=== PATIENT | female | born 1955 | race African-American/Black ===

== ENCOUNTER 2019-01-09 09:19 | Inpatient (IN) ==
[2019-01-09 09:58] LABS: BILIRUBIN URINE NEGATIVE (NEGATIVE); BLOOD URINE 4+ (NEGATIVE); CLARITY CLEAR (CLEAR); COLOR YELLOW; GLUCOSE URINE NEGATIVE (NEGATIVE); KETONE URINE NEGATIVE (NEGATIVE); LEUKOCYTES URINE 1+ (NEGATIVE); NITRITE URINE NEGATIVE (NEGATIVE); PH URINE 6.5; PROTEIN URINE 1+(30 mg/dL) mg/dL (NEGATIVE); SP GRAVITY URINE 1.015; UROBILINOGEN URINE 4 mg/dL
[2019-01-09 10:01] LABS: URINE BACTERIA 1+ /HFP; URINE CAST NONE SEEN /LPF; URINE CRYSTAL NONE SEEN /HPF; URINE EPITHELIAL CELLS <10 /HPF (<10); URINE RBC <10 /HPF (<10); URINE SOURCE CLEAN CATCH; URINE WBC <10 /HPF (<10); URINE YEAST PRESENT /HPF
[2019-01-09 10:05] LABS: BASO# 0.03 X1000 (0.0-0.2); BASO% 0.2 % (0.0-0.8); EOS# 0.01 X1000 (0.0-0.7); EOS% 0.1 % (0.0-10.0); HEMATOCRIT 38.8 % (37.0-47.0); HEMOGLOBIN 12.9 g/dL (12.0-16.0); IMM GRAN# 0.02 X1000 (0.0-0.04); IMM GRAN% 0.1 % (0.0-0.5); LYMPH# 1.77 X1000 (1.2-3.4); LYMPH% 12.3 % (20.5-51.1); MCH 28.8 PG (27-31); MCHC 33.2 g/dL (33-37); MCV 86.6 FL (81-99); MONO# 1.63 X1000 (0.11-0.59); MONO% 11.3 % (1.7-9.3); MPV 9.7 FL (7.4-10.4); NEUT# 10.96 X1000 (1.4-6.5); PLT 364 X1000 (130-400); RBC 4.48 XMIL (4.2-5.4); WBC 14.42 X1000 (4.8-10.8)
--- NOTE | 2019-01-09 10:34 | Diag Imaging Result Doc PS360 ---
EXAM: ABDOMEN FLAT/UPRIGHT - 01/09/2019 HISTORY: nvd TECHNIQUE: Supine and upright abdomen COMPARISON: None. FINDINGS: The bowel gas pattern appears nonspecific and nonobstructive. There is no free air identified. IMPRESSION: Nonspecific, nonobstructive bowel gas pattern. Electronically signed by Cal Cosme 01/09/2019 10:32 AM
--- NOTE | 2019-01-09 10:37 | Diag Imaging Result Doc PS360 ---
EXAM: CHEST-2 VIEWS - 01/09/2019 HISTORY: cough TECHNIQUE: Chest two views COMPARISON: None. FINDINGS: Heart size appears upper normal. There is some peribronchial cuffing which may relate to bronchitis. There is mild infiltrate or atelectasis at the posterior base of the chest which is most conspicuous on the lateral view. The possibility of bronchopneumonia at this location cannot be excluded. There is no other consolidation, pleural effusion, or pneumothorax identified. There is thoracic spondylosis noted. IMPRESSION: Apparent bronchitis, with possible lower lobe bronchopneumonia. Electronically signed by Cal Cosme 01/09/2019 10:34 AM
[2019-01-09 10:55] LABS: AGAP 14; ALBUMIN 4.1 g/dL (3.5-5.0); ALKALINE PHOSPHATASE 82 U/L (32-104); BUN 10 mg/dL (8-22); CHLORIDE 96 mmol/L (98-107); COSMO 270; CREATININE 0.7 mg/dL (0.5-0.9); ESTIMATED GFR > 60; GLUCOSE 122 mg/dL (70-104); GOT 20 U/L (10-30); GPT 16 U/L (10-36); LIPASE 15 U/L (13-60); POTASSIUM 3.3 mmol/L (3.5-5.1); SODIUM 135 mmol/L (136-145); TCO2 25 mmol/L (25-35); TOTAL PROTEIN 8.1 g/dL (6.3-8.3)
--- NOTE | 2019-01-09 11:15 | PROVIDER DOCUMENTATION ---
This chart was entered by Trinity Ruano Scribe, acting as scribe for Boone Holloway MD. HPI-Abdominal Pain/GI Problem - General Chief Complaint: N/V/D Stated Complaint: VOMITING SINCE SATURDAY Time Seen by Provider: 01/09/19 09:26 Source: patient, family () Allergies/Adverse Reactions: Patient Allergies Allergy/AdvReac Type Severity Reaction Status Date / Time No Known Allergies Allergy Verified 08/20/17 18:11 Home Medications: Home Medication List Medication Instructions Recorded Confirmed Last Taken Type Ibuprofen [Motrin] 800 mg PO Q8H PRN PRN #30 tab 08/20/17 Unknown Rx Methocarbamol [Robaxin] 500 mg PO BID #15 tab 08/20/17 Unknown Rx - History of Present Illness-ABD Nature of Presenting Problems: 63 yobf presents to the ed with c/o 4 days of intermittent n/v/d, increased urination, hematuria, abdominal pain in umbilical and RUQ, fever and cough. pt sts poor mikey intake due to nausea and vomiting. pt sts sx have worsened since onset and denies bad food or sick contacts Abdominal Pain Onset Location: reports: RUQ Pain Radiation: reports: periumbilical Quality of Pain: reports: cramping Severity in ED: reports: moderate Onset/Duration: reports: 4 days ago Activities at Onset: reports: light activity Exposure to sick contacts?: No Modifying Factors: improves with: nothing. worse with: eating Associated Symptoms: reports: cough, diarrhea, EENT symptoms, fever/chills (100.4), genitourinary problems (increased urination and hematuria), nausea, vomiting. denies: back/neck pain, chest pain, headaches, shortness of breath Last BM: this morning Dark Stools Present?: reports: none noticed Rectal Bleeding: reports: none # of Diarrhea Episodes: 5 Rectal Pain: reports: none # of Vomiting Episodes: 10 Emesis Description: reports: other (anything taken PO) Bruising or Bleeding Gums?: No Similar Symptoms Previously?: No Recently seen or treated by another doctor?: No Review of Systems - Adult - REVIEW OF SYSTEMS - ADULT Constitutional: reports: see HPI, chills, fever Eyes: reports: no symptoms reported Ears, Nose, Mouth & Throat: reports: no symptoms reported Cardiovascular: reports: see HPI, edema (BLE). denies: chest pain, palpitations Respiratory: reports: see HPI, cough. denies: shortness of breath, wheezing Gastrointestinal: reports: see HPI, abdominal pain, diarrhea, nausea, vomiting. denies: hematemesis, rectal bleeding Genitourinary: reports: see HPI, frequency, hematuria. denies: dysuria, flank pain Musculoskeletal: denies: back pain, neck pain Integumentary: reports: no symptoms reported Neurological: denies: dizziness/vertigo, headache/migraines, loss of balance, numbness, paresthesia, seizure Psychiatric: reports: no symptoms reported Endocrine: reports: no symptoms reported Hematologic/Lymphatic: reports: no symptoms reported Allergic/Immunologic: reports: no symptoms reported All Other Systems: Reviewed and Negative Past History - Adult - PAST MEDICAL HISTORY-ADULT Review of Records: reports: Old Records Reviewed, Nursing Assessment Review, Medications Reviewed, Social history reviewed & non-contributory. Major Childhood Illnesses: reports: denies history Cardiovascular: reports: denies history Respiratory: reports: denies history Gastrointestinal: reports: denies history Obstetrical/Gynecological: reports: denies history Genitourinary: reports: denies history Musculoskeletal: reports: denies history Hand Dominance: Right Handed Neurological: reports: denies history Psychiatric: reports: denies history Endocrine/Immune: reports: denies history Other Conditions: reports: denies history - PRIOR SURGERIES/PROCEDURES Surgical/Procedure History: reports: hysterectomy, orthopedic (extremity) - IMMUNIZATION STATUS Childhood Immunizations: See Nurse Assessment Flu Vaccine: See Nurse Assessment - FAMILY HISTORY Family History: reviewed, not pertinent - SOCIAL HISTORY Smoking: denies Substance Use: denies Living Situation: family Physical Exam-General - PHYSICAL EXAM-ADULT Initial Vital Signs Reviewed: Yes - CONSTITUTIONAL General Appearance: appears well, alert, mild distress, obese - EYES Eyes: PERRL/EOMI, pink conjunctivae - HEAD, EARS, NOSE, MOUTH & THROAT HENMT: other (nasal congestion). negative: moist mucous membranes (dry) - NECK Neck: non-tender, full range of motion, normal inspection - RESPIRATORY Respiratory: chest non-tender, lungs clear, normal breath sounds - CARDIOVASCULAR Cardiovascular: normal peripheral pulses, regular rate, rhythm - GASTROINTESTINAL (ABDOMEN) Abdominal Exam: normal bowel sounds, soft, no organomegaly, no pulsatile mass, tenderness (ruq and umbilical). negative: guarding, rigid, rebound - GENITOURINARY Female Genitalia/Pelvic Exam: deferred Rectal Exam: deferred Hemoccult Exam: deferred - LYMPHATIC Lymphatic: no adenopathy - MUSCULOSKELETAL Back Exam: normal inspection, no CVA tenderness, no vertebral tenderness Extremity: normal range of motion, non-tender, no pedal edema, no calf tenderness, normal capillary refill, swelling (BLE edema), other (well healed scar on LLE near ankle) - SKIN Integumentary: normal color, normal turgor, warm/dry - NEUROLOGIC Neurologic: grossly normal, no motor/sensory deficits - PSYCHIATRIC Psych/Mental Status: normal mood/affect, normal thought content, normal thought process, oriented x 3 Progress - PLAN OF CARE/RESULTS Progress/Plan/Lab Results: Vital Signs - 8 hr 01/09/19 09:23 Temperature 98.8 F Pulse Rate 81 Respiratory Rate 18 Blood Pressure 145/73 O2 Sat by Pulse Oximetry 96 Laboratory Results - last 24 hr 01/09/19 09:44 Urine Source CLEAN CATCH Urine Color YELLOW Urine Clarity CLEAR Urine pH 6.5 Ur Specific [place] 1.015 Urine Protein 1+(30 mg/dL) A Urine Ketones NEGATIVE Urine Blood 4+ Urine Nitrite NEGATIVE Urine Bilirubin NEGATIVE Urine Urobilinogen 4 Urine Microscopic RBC <10 Urine WBC 1+ A Urine Microscopic WBC <10 Ur Epithelial Cells <10 Urine Crystals NONE SEEN Urine Bacteria 1+ Urine Casts NONE SEEN Urine Yeast PRESENT Urine Glucose NEGATIVE Orders Category Date Time Status CHEST-2 VIEWS [RAD] Stat Exams 01/09/19 10:04 Ordered AMYLASE [CHEM] Stat Lab 01/09/19 09:54 Received CBC WITH DIFF [HEME] Stat Lab 01/09/19 09:54 Results COMPREHENSIVE METABOLIC PANEL [CHEM] Stat Lab 01/09/19 09:56 Received LIPASE [CHEM] Stat Lab 01/09/19 09:[address] W/POSS RFLX CULT [URINALYSIS] Stat Lab 01/09/19 09:44 Completed URINE CULTURE [RM] Routine Lab 01/09/19 10:01 Ordered Result Diagrams: 01/09/19 09:54 01/09/19 09:54 - REASSESSMENT Reassessment #1 Time Reassessed: 10:47 (pt is resting in bed) Status: improving - XRAY 1 XRAY: Bilateral XRAY Study: Abdomen Impression: See EMR Report (EXAM: ABDOMEN FLAT/UPRIGHT - 01/09/2019 HISTORY: nvd TECHNIQUE: Supine and upright abdomen COMPARISON: None. FINDINGS: The bowel gas pattern appears nonspecific and nonobstructive. There is no free air identified. IMPRESSION: Nonspecific, nonobstructive bowel gas pattern. Electronically signed by Cal Cosme 01/09/2019 10:32 AM 01/09/19 1032 Interpreting Physician: Cal Cosme MD Dictated Date/Time: 01/09/19 1030 cc: Boone Holloway MD; Eduardo Palacios DO) 2 XRAY: Bilateral XRAY Study: Chest Impression: See EMR Report (EXAM: CHEST-2 VIEWS - 01/09/2019 HISTORY: cough TECHNIQUE: Chest two views COMPARISON: None. FINDINGS: Heart size appears upper normal. There is some peribronchial cuffing which may relate to bronchitis. There is mild infiltrate or atelectasis at the posterior base of the chest which is most conspicuous on the lateral view. The possibility of bronchopneumonia at this location cannot be excluded. There is no other consolidation, pleural effusion, or pneumothorax identified. There is thoracic spondylosis noted. IMPRESSION: Apparent bronchitis, with possible lower lobe bronchopneumonia. Electronically signed by Cal Cosme 01/09/2019 10:34 AM 01/09/19 1034 Interpreting Physician: Cal Cosme MD Dictated Date/Time: 01/09/19 1032 cc: Boone Holloway MD; Eduardo Palacios DO) - CONSULTS/PCP/HOSPITALIST Notification #1 *Consult/PCP/Hospitalist*: hospitalist dr johnson Time Discussed: 11:08 Consult Disposition: Admit Departure - Departure Date of Disposition Decision: 01/09/19 Time of Disposition Decision: 11:13 DIAGNOSIS: Pneumonia, Hematuria Disposition: ADMITTED INPATIENT 09 Certified Medical Emergency: Emergent Condition: Stable Referrals and Follow-Ups: Eduardo Palacios DO [Primary Care Provider] - - Critical Care Note This patient required my direct & personal management of CC.: No Attestation - Physician/ JESSE Attestation Patient care was provided by Advanced Practice Provider:: No The physician spent face to face time with patient:: Yes Advanced Practice Provider documentation review:: Supervising physician onsite and consulted in the evaluation and care of this patient. The physician did have a face to face encounter with the patient. This chart was documented by the indicated scribe, (Trinity Ruano Scribe) and accurately reflects the services I performed and decisions made by me, Boone Holloway MD, as attested by the provider's signature.
[2019-01-09] MEDS: FLAGYL 500 MG/NS 500 MG/100 ML IVPB IV SCH ×2 (16:50→22:16)
[2019-01-09] MEDS: LEVAQUIN 750 MG/D5W 750 MG/150 ML IVPB IV SCH (18:01)
[2019-01-10] MEDS: FLAGYL 500 MG/NS 500 MG/100 ML IVPB IV SCH ×4 (03:27→22:08)
[2019-01-10] MEDS: TYLENOL PO PRN (05:38)
[2019-01-10 07:04] LABS: HEMATOCRIT 37.4 % (37.0-47.0); HEMOGLOBIN 12.2 g/dL (12.0-16.0); MCH 28.8 PG (27-31); MCHC 32.6 g/dL (33-37); MCV 88.2 FL (81-99); MPV 9.7 FL (7.4-10.4); RBC 4.24 XMIL (4.2-5.4); RDW 13.1 % (11.5-14.5); WBC 9.67 X1000 (4.8-10.8)
[2019-01-10 07:26] LABS: AGAP 12; ALBUMIN 3.8 g/dL (3.5-5.0); ALKALINE PHOSPHATASE 71 U/L (32-104); BUN 11 mg/dL (8-22); CALCIUM 8.7 mg/dL (8.8-10.2); CHLORIDE 95 mmol/L (98-107); COSMO 275; CREATININE 0.6 mg/dL (0.5-0.9); ESTIMATED GFR > 60; GLUCOSE 96 mg/dL (70-104); GOT 19 U/L (10-30); GPT 14 U/L (10-36); SODIUM 138 mmol/L (136-145); TCO2 31 mmol/L (25-35); TOTAL PROTEIN 7.2 g/dL (6.3-8.3)
[2019-01-10] MEDS ORDERED: KLOR-CON PO ONE (10:19)
[2019-01-10] MEDS ORDERED: NS 1,000 ML IV SCH (10:30)
[2019-01-10] MEDS ORDERED: NS 500 ML IV SCH (11:00)
--- NOTE | 2019-01-10 11:42 | HISTORY AND PHYSICAL ---
CHIEF COMPLAINT: Nausea, vomiting. HISTORY OF PRESENT ILLNESS: Patient is a 63-year-old female, who presented to the ER with a 4 to 5 day history of nausea. Vomiting has been going on the past 4 days, becoming more severe. She is having diarrhea. Denies any hematochezia, melena or hematemesis. She has had increased urination, denies hematuria. Has had umbilical and right upper quadrant pain. Notes that she has had a decreased oral intake secondary to the nausea and frequent emesis. ALLERGIES: No known drug allergies. MEDICATIONS: She is on no current active chronic medications. REVIEW OF SYSTEMS: Positive fevers to 100.4. She has had some cramping right upper quadrant pain, nausea and vomiting. She has had diarrhea. She has had increased urination, increased thirst. Denies any chest pain, palpitations. Denies shortness of breath. Denies any focalized numbness, tingling or weakness in her extremities. PAST MEDICAL HISTORY: No chronic active medical problems. SURGICAL HISTORY: She has had a hysterectomy and extremity surgery. FAMILY HISTORY: Noncontributory. SOCIAL HISTORY: Patient does not smoke or drink. PHYSICAL EXAM: VITAL SIGNS: Temperature 98 degrees, pulse 81, respiratory rate 18, BP 145/73. GENERAL: Patient is awake, alert. She is in no distress. HEENT: Normocephalic. NECK: Supple. CARDIOVASCULAR: Regular rate. CHEST: Clear and nonlabored. EXTREMITIES: Moves all extremities. NEUROLOGIC: No changes. ASSESSMENT: 1. Nausea, vomiting, diarrhea, likely viral gastroenteritis. 2. Leukocytosis. 3. Mild hypokalemia. 4. Hematuria. PLAN: We are going to admit patient to the hospital. IV fluids, Zofran, and other symptomatic medications as needed. We will continue to follow. cc: William Rich MD
[2019-01-10] MEDS: LEVAQUIN 750 MG/D5W 750 MG/150 ML IVPB IV SCH (15:10)
--- NOTE | 2019-01-10 20:55 | PROGRESS NOTE ---
DATE: 01/10/2019 SUBJECTIVE: The patient notes that she is feeling better. Her nausea is much improved. She is still having coughing. He has not really been coughing up anything today. Denies any fevers or chills. PHYSICAL EXAMINATION: Temp 98, pulse 61, respiratory 18, BP 112/44.General: Patient is awake, alert. She is very pleasant to talk with. She is in no current respiratory distress. HEENT: Normocephalic. Neck: Supple. Cardiovascular: Regular rate. No murmurs. Chest: Decreased but equal breath sounds. No crackles. No wheezing. Abdomen: Soft, nondistended. Extremities: Moves all extremities. ASSESSMENT: 1. Nausea, vomiting. 2. Gastroenteritis, likely viral. 3. Leukocytosis. 4. Hematuria. 5. Bronchitis. 6. Hypokalemia. PLAN: We will continue on Levaquin and Flagyl as this will treat any pneumonia as well as any abdominal pathology. She is improving. We will continue to advance her diet. Hopefully, she can discharge home tomorrow if her symptoms continue to improve. cc: William Rich MD
[2019-01-11] MEDS: FLAGYL 500 MG/NS 500 MG/100 ML IVPB IV SCH (04:06)
[2019-01-11 06:22] LABS: HEMATOCRIT 38.4 % (37.0-47.0); HEMOGLOBIN 12.3 g/dL (12.0-16.0); MCH 28.2 PG (27-31); MCV 88.1 FL (81-99); MPV 9.7 FL (7.4-10.4); RBC 4.36 XMIL (4.2-5.4); RDW 12.9 % (11.5-14.5); WBC 8.66 X1000 (4.8-10.8)
[2019-01-11 07:06] LABS: AGAP 10; ALBUMIN 3.5 g/dL (3.5-5.0); ALKALINE PHOSPHATASE 74 U/L (32-104); BUN 14 mg/dL (8-22); CALCIUM 8.7 mg/dL (8.8-10.2); CHLORIDE 102 mmol/L (98-107); COSMO 278; CREATININE 0.6 mg/dL (0.5-0.9); ESTIMATED GFR > 60; GLUCOSE 102 mg/dL (70-104); GOT 22 U/L (10-30); GPT 15 U/L (10-36); MAGNESIUM 1.8 mg/dL (1.5-2.7); POTASSIUM 3.6 mmol/L (3.5-5.1); SODIUM 139 mmol/L (136-145); TCO2 27 mmol/L (25-35); TOTAL PROTEIN 7.4 g/dL (6.3-8.3)
[2019-01-11] MEDS: LEVAQUIN PO SCH (09:53)
[2019-01-11] MEDS: FLAGYL PO SCH ×2 (12:41→21:52)
[2019-01-11] MEDS: TYLENOL PO PRN (15:49)
[2019-01-11] MEDS: DUONEB (A & A) INH PRN (15:55)
--- NOTE | 2019-01-11 20:21 | PROGRESS NOTE ---
DATE: 01/11/2019 SUBJECTIVE: Patient notes she is still coughing with congestion. Still having some shortness of breath. States she is very concerned about going home today. Still feels increased work of breathing with any activity. PHYSICAL EXAMINATION: She is afebrile. Pulse is in the 60s. Blood pressure is stable.General: Patient is awake, alert. She is pleasant. She is coughing. She does appear to be in mild respiratory distress. HEENT: Normocephalic. Neck: Supple. Cardiovascular: Regular rate. No murmurs. Chest: Wheezing bilaterally. No current crackles. Mildly labored while she is lying in the bed. [id number] labored when she gets up and moves. Abdomen: Soft, nondistended, nontender. Extremities: Moves all extremities. Neurologic: No changes. ASSESSMENT: 1. Nausea vomiting. 2. Diarrhea, likely gastroenteritis appears resolved. 3. Pneumonia. 4. Wheezing. 5. Leukocytosis. 6. Hypokalemia resolved. PLAN: We will continue patient in the hospital today. We will add breathing treatments. We will not add steroids year yet, but certainly may require this if she does not turn around. Expect that she will be in the hospital 1 to 2 more days. cc: William Rich MD
[2019-01-12] MEDS: FLAGYL PO SCH ×3 (05:44→20:50)
[2019-01-12] MEDS: DUONEB (A & A) INH PRN (08:16)
[2019-01-12] MEDS: LEVAQUIN PO SCH (09:08)
[2019-01-12] MEDS: SOLU-MEDROL IV SCH ×2 (09:08→16:14)
--- NOTE | 2019-01-12 19:38 | PROGRESS NOTE ---
DATE: 01/12/2019 SUBJECTIVE: Patient states that she still does not feel completely back to normal. Still having coughing and mild congestion. Denies any fevers or chills. PHYSICAL EXAMINATION: Vital signs: Temp 98, pulse 61, respiratory 18, BP 127/66. General: Patient is pleasant to talk with. She is lying in the bed. She does have a mild cough with any movement. HEENT: Normocephalic. Neck: Supple. Cardiovascular: Regular rate. No murmurs. Chest: Clear although when she has forced exhalation, she does have some mild wheezing. Abdomen: Soft, nondistended. Extremities: Moves all extremities. ASSESSMENT: 1. Asthma exacerbation with wheezing. 2. Gastroenteritis, resolved. 3. Leukocytosis. 4. Hypokalemia. PLAN: We will continue patient in the hospital. Continue breathing treatments and we will add Solu-Medrol today and see if this helps and we will follow. Hopefully she can discharge home over the next day or two. cc: William Rich MD
[2019-01-13] MEDS: SOLU-MEDROL IV SCH ×3 (00:03→16:11)
[2019-01-13] MEDS: FLAGYL PO SCH ×2 (05:09→13:06)
[2019-01-13 06:38] LABS: HEMATOCRIT 38.8 % (37.0-47.0); HEMOGLOBIN 12.6 g/dL (12.0-16.0); MCH 28.3 PG (27-31); MCHC 32.5 g/dL (33-37); MPV 9.8 FL (7.4-10.4); RBC 4.46 XMIL (4.2-5.4); WBC 13.95 X1000 (4.8-10.8)
--- NOTE | 2019-01-13 06:44 | Diag Imaging Result Doc PS360 ---
CHEST-2 VIEWS - 01/13/2019 INDICATION: hypoxia COMPARISON: 01/09/2019 FINDINGS: Lung volumes are severely low with patchy nonspecific atelectasis or infiltrate in the lung bases. This is stable from prior. Heart size is top normal. No pneumothorax or pleural effusion. IMPRESSION: No change from prior. Electronically signed by Gurwinder Gonzalez 01/13/2019 6:41 AM
[2019-01-13 06:53] LABS: AGAP 10; ALBUMIN 3.6 g/dL (3.5-5.0); ALKALINE PHOSPHATASE 70 U/L (32-104); BUN 10 mg/dL (8-22); CALCIUM 9.1 mg/dL (8.8-10.2); CHLORIDE 106 mmol/L (98-107); COSMO 283; CREATININE 0.5 mg/dL (0.5-0.9); ESTIMATED GFR > 60; GLUCOSE 139 mg/dL (70-104); GOT 16 U/L (10-30); GPT 15 U/L (10-36); MAGNESIUM 1.8 mg/dL (1.5-2.7); POTASSIUM 4.1 mmol/L (3.5-5.1); SODIUM 141 mmol/L (136-145); TCO2 25 mmol/L (25-35); TOTAL PROTEIN 7.6 g/dL (6.3-8.3)
[2019-01-13] MEDS: LEVAQUIN PO SCH (08:37)
[2019-01-13 16:03] VITALS: BP 134/68
--- NOTE | 2019-01-14 08:32 | DISCHARGE SUMMARY ---
ADMISSION DATE: 01/09/2019 DISCHARGE DATE: 01/13/2019 DISCHARGE DIAGNOSES: 1. Asthma exacerbation, possibly early pneumonia. 2. Gastroenteritis. 3. Hypokalemia. CONSULTATIONS: None. PROCEDURES: None. HOSPITAL COURSE: This is a 63-year-old female presenting with nausea, vomiting. She was placed on IV fluids, Zofran. She had some mild hematuria. She was placed on Levaquin and Flagyl. Her chest x-ray showed some possible atelectasis versus lower lobe bronchopneumonia, bronchitis. Her abdominal films were nonspecific. She improved slowly. She had to be placed on steroids for breathing and breathing treatments as she had persistent wheezing. By the she improved. She was monitored for a little longer and on the she was breathing comfortably, 97-100% on room air. I did not appreciate any wheezing. She did have some leukocytosis, 13.9. Potassium was up to 4.1, but wheezing had resolved. She was tolerating p.o. without difficulty and felt stable for discharge. DISCHARGE MEDICATIONS: Hydrochlorothiazide 25 daily home medication, Levaquin 500 daily for 7 days, prednisone taper, and Ventolin 2 puffs inhaled t.i.d. for 7 days and as needed. FOLLOWUP: She follow up with her PCP who is Dr. Eduardo Palacios, in 1 to 2 weeks. Return for worsening shortness of breath or cough. TIME SPENT: 32 minute discharge. cc: Douglas Barger MD
== END 2019-01-13 16:55 | disposition home or self-care (01) | DRG 391 ==
LOC: P.ED 09:19 → P.MEDSURG 09:19 → SUATTDRO 09:20 → OBSVTOIN 09:20
PROVIDERS: ATTEND Internal Medicine
CPT/HCPCS: 71020; 71046; 74019; 74020; 80053; 81001; 82150; 83690; 83735; 85025; 85027; 87070; 87088; 87205; 89220; 94640; 94761; 94799; A9270; J1956; J2930; J7030; S0030